=== PATIENT | male | born 1955 | race Caucasian/White ===

== ENCOUNTER 2018-09-21 16:21 | Inpatient (IN) | payer MEDICAID ==
[~2018-09-21] VITALS: Ht 167.6 cm; Wt 54.0 kg
[2018-09-21] MEDS ORDERED: NACL 0.9% 1,000 ML IV ONE ×2 (16:30→16:56)
[2018-09-21 16:32] VITALS: BP_SYST 141
--- NOTE | 2018-09-21 16:42 | NUR ---
Patient to ER bed 8 to gown for evaluation. Side rails up. Report given to Lizandro DHILLON.
--- NOTE | 2018-09-21 16:45 | NUR ---
Pt AAOx4 presents to ED c/o 03/13 diffuse abdominal pain with N/V x 2 days. No other injuries/complaints per pt/noted. Will continue to monitor.
--- NOTE | 2018-09-21 16:50 | NUR ---
ER Dr. Dalton at bedside examining patient.
[2018-09-21] MEDS ORDERED: MORPHINE 4 MG/ML INJ. SYRINGE IVP ONE (17:00)
[2018-09-21] MEDS ORDERED: ONDANSETRON HCL 4 MG/2 ML VIAL IVP ONE (17:00)
[2018-09-21 17:18] LABS: BASOPHILS % (AUTO) 0.2 % (0.0-2.0); HEMATOCRIT 46.3 % (36-54); HEMOGLOBIN 15.4 g/dL (14.0-18.0); LYMPHOCYTES # (AUTO) 0.5 K/uL (1.0-5.5); LYMPHOCYTES % (AUTO) 3.2 % (20.5-51.5); MEAN CORPUSCULAR HEMOGLOBIN 30 pg (27-31); MEAN CORPUSCULAR HGB CONC 33 % (32-36); MEAN CORPUSCULAR VOLUME 92 fL (79.0-98.0); MONOCYTES # (AUTO) 0.5 K/uL (0.0-1.0); MONOCYTES % (AUTO) 3.6 % (1.7-9.3); NEUTROPHILS # (AUTO) 13.9 K/uL (1.8-7.7); PLATELET COUNT (AUTO) 279 K/uL (130-430); RED BLOOD CELL COUNT(AUTO) 5.07 MIL/uL (4.2-6.2); RED CELL DISTRIBUTION WIDTH 14.1 % (9.0-15.0)
[2018-09-21 17:36] LABS: PROTHROMBIN TIME 10.3 SECS (9.5-12.5)
[2018-09-21 17:45] LABS: CALCIUM 9.7 mg/dL (8.4-11.0); CREATININE 0.97 mg/dL (0.55-1.30); POTASSIUM 3.6 mmol/L (3.5-5.1)
[2018-09-21] MEDS ORDERED: cefTRIAXone 1 GM IVPB PREMIX 50 ML IV ONE (17:45)
[2018-09-21 17:51] LABS: ALBUMIN 4.1 g/dL (3.4-4.8); TOTAL BILIRUBIN 0.6 mg/dL (0.0-1.0)
[2018-09-21 18:10] LABS: BILIRUBIN,URINE NEGATIVE (NEGATIVE); BLOOD, URINE NEGATIVE (NEGATIVE); CLARITY/URINE CLEAR (CLEAR); COLOR,URINE YELLOW (YELLOW); GLUCOSE,URINE NEGATIVE (NEGATIVE); KETONES,URINE NEGATIVE (NEGATIVE); LEUKOCYTE ESTERASE ,URINE NEGATIVE (NEGATIVE); NITRITE, URINE NEGATIVE (NEGATIVE); PROTEIN URINE NEGATIVE (NEGATIVE); UROBILINOGEN,URINE 0.2 (0.2-1.0)
--- NOTE | 2018-09-21 18:12 | NUR ---
Medication administered. Pt tolerated well. No adverse reactions noted. Will continue to monitor.
[2018-09-21 18:20] LABS: BARBITURATE, URINE NEGATIVE (NEG <=200); BENZODIAZEPINE, URINE NEGATIVE (NEG <=150); CANNABINOID, URINE POSITIVE (NEG <=50); COCAINE, URINE NEGATIVE (NEG <=150); METHAMPHETAMINES SCREEN,URINE NEGATIVE (NEG <=500); OPIATE, URINE POSITIVE (NEG <=100); PHENCYCLIDINE SCREEN,URINE NEGATIVE (NEG <=25); UR TRICYCLIC ANTIDEPRESSANTS NEGATIVE (NEG <=300); URINE AMPHETAMINE NEGATIVE (NEG <=500); URINE METHADONE NEGATIVE (NEG <=200); URINE OXYCODONE SCREEN NEGATIVE (NEG <=100); URINE PROPOXYPHENE SCREEN NEGATIVE (NEG <=300)
--- NOTE | 2018-09-21 18:26 | NUR ---
Pt reports he is full code
--- NOTE | 2018-09-21 19:07 | NUR ---
Patient will be admitted to care of Dr. Nowak. Admitted to Med Surg unit. Will go to room 111 B. Belongings list completed. Summary report printed. Report will be given at bedside.
--- NOTE | 2018-09-21 19:07 | NUR ---
Transfer to [facility]. IV present no sign or symptom of infiltration.
[2018-09-21 20:00] VITALS: BP_SYST 154
--- NOTE | 2018-09-21 20:04 | NUR ---
ADMIT NOTE Received pt from ER to the floor with a diagnosis of acute cholecystitis. Admission process initiated. patient oriented to pain management, safety and call light-teach back done.
--- NOTE | 2018-09-21 20:05 | NUR ---
ROUNDS PATIENT IN BED, VITALS STABLE, NO PAIN AT THIS TIME. ASSESSMENT DONE AND DOCUMENTED. SEE FLOWSHEET. ORIENTED TO HIS ROOM, PHONE, TV AND CALL LIGHT LIGHT. PLAN OD CARE DISCUSSED AND PATIENT VERBALIZED UNDERSTANDING. NEEDS ATTENDED TO. CALL LIGHT PLACED WITHIN REACH.
[2018-09-21] MEDS ORDERED: OMEP20CA10 PO (20:18)
[2018-09-21] MEDS ORDERED: LISI10TA5 PO (20:18)
[2018-09-21] MEDS ORDERED: CYM30 PO (20:18)
[2018-09-21] MEDS ORDERED: HYDR-4274 PO (20:18)
[2018-09-21] MEDS ORDERED: KCL 20 mEq in D5/0.45NS 1000mL 1,000 ML IV ONE (20:52)
[2018-09-21] MEDS: KCL 20 mEq in D5/0.45NS 1000mL 1,000 ML IV SCH (21:18)
[2018-09-21] MEDS: HYDROmorphone 2 MG/ML VIAL IVP PRN (23:07)
[2018-09-21] MEDS: ONDANSETRON HCL 4 MG/2 ML VIAL IVP PRN (23:12)
--- NOTE | 2018-09-21 23:52 | NUR ---
DR. MARSH PATIENT SEEN BY DR. MARSH WITH NEW ORDERS. WILL CONTINUE TO MONITOR.
[2018-09-22 00:09] VITALS: BP_SYST 129
--- NOTE | 2018-09-22 00:24 | NUR ---
CONSULTATION PAGED/CALLED Reason for Consultation: CHOLECYSTITIS Person Who was Notified: STANISLAV Consulting Physician: DR. HANNON Boat Outboard Engine Mechanic Specialty: SX Ordering Physician: DR. MARSH
--- NOTE | 2018-09-22 00:37 | NUR ---
Consult Dr. Nielsen called returning call for consult. Updated on patient history. No orders given.
[2018-09-22] MEDS ORDERED: metroNIDAZOLE 500 mg/NS 100 ML IV ONE (00:54)
[2018-09-22] MEDS: PANTOPRAZOLE SODIUM 40 MG/VIAL (PROTONIX) IVP SCH ×2 (01:06→09:00)
[2018-09-22] MEDS: ONDANSETRON HCL 4 MG/2 ML VIAL IVP PRN ×5 (03:44→20:35)
[2018-09-22] MEDS: HYDROmorphone 2 MG/ML VIAL IVP PRN ×4 (03:44→20:36)
--- NOTE | 2018-09-22 04:13 | NUR ---
PATIENT RESTING: Patient resting quietly. No acute distress noted. Vital signs within normal range.
[2018-09-22] MEDS: metroNIDAZOLE 500 mg/NS 100 ML IV SCH ×3 (05:06→23:56)
[2018-09-22 06:25] LABS: BASOPHILS % (AUTO) 0.2 % (0.0-2.0); HEMATOCRIT 41.2 % (36-54); HEMOGLOBIN 13.6 g/dL (14.0-18.0); LYMPHOCYTES # (AUTO) 0.3 K/uL (1.0-5.5); LYMPHOCYTES % (AUTO) 2.3 % (20.5-51.5); MEAN CORPUSCULAR HEMOGLOBIN 30 pg (27-31); MEAN CORPUSCULAR HGB CONC 33 % (32-36); MEAN CORPUSCULAR VOLUME 91 fL (79.0-98.0); MONOCYTES # (AUTO) 0.4 K/uL (0.0-1.0); MONOCYTES % (AUTO) 3.9 % (1.7-9.3); NEUTROPHILS # (AUTO) 10.6 K/uL (1.8-7.7); NEUTROPHILS % (AUTO) 93.6 % (40.0-70.0); PLATELET COUNT (AUTO) 221 K/uL (130-430); RED CELL DISTRIBUTION WIDTH 14.4 % (9.0-15.0); WHITE BLOOD COUNT (AUTO) 11.3 K/uL (4.8-10.8)
[2018-09-22 06:38] LABS: CALCIUM 8.6 mg/dL (8.4-11.0); CREATININE 0.86 mg/dL (0.55-1.30); POTASSIUM 3.7 mmol/L (3.5-5.1)
--- NOTE | 2018-09-22 06:52 | NUR ---
CLOSING NOTES PATIENT ASLEEP, NOT IN DISTRESS, VITALS STABLE. NO SIGNS OF PAIN AT THIS TIME. ALL NEEDS ATTENDED TO. SAFETY MEASURES MAINTAINED. CALL LIGHT PLACED WITHIN REACH.
[2018-09-22 08:00] VITALS: BP_SYST 155
--- NOTE | 2018-09-22 08:00 | NUR ---
RN OPENING NOTE PATIENT IS RESTING IN BED, ALERT ORIENTED X4, PATIENT COMPLAINTS OF HEADACHE OF 4/10, PATIENT WILL BE GIVEN HIS PRN NON NARCOTIC PAIN MED. PATIENT WAS ASSESSED, VITAL SIGNS ARE STABLE. WILL CONTINUE TO MONITOR.
[2018-09-22] MEDS: LISINOPRIL 10 MG TABLET (PRINIVIL) PO SCH (08:45)
[2018-09-22] MEDS: ACETAMINOPHEN 325 MG TABLET PO PRN (08:46)
[2018-09-22] MEDS: ENOXAPARIN SODIUM 40 MG/0.4 ML SYRINGE SUBCUT SCH (08:47)
--- NOTE | 2018-09-22 10:00 | NUR ---
RN NOTE PATIENT WAS GIVEN HIS IV MEDIATIONS WELL ZOFRAN SINCE HE FELT NAUSEA, PATIENT IS SCHEDULED FOR HIDA SCAN, WILL FOLLOW UP WITH THE [facility].
--- NOTE | 2018-09-22 11:21 | NUR ---
pain: Patient is still waiting for HIDA scan, but he has severe pain. Call the [place] medical instrument technician and he spoke to a Radiologist and said it is OK to give Dilaudid 2 mg IVP as PRN ordered, then he will medicinal plant picker patient about in 2 hrs.
[2018-09-22] MEDS: DULoxetine HCL 30 MG CAPSULE.DR (CYMBALTA) PO SCH (11:54)
[2018-09-22] MEDS: KCL 20 mEq in D5/0.45NS 1000mL 1,000 ML IV SCH ×2 (11:55→23:40)
[2018-09-22 12:02] VITALS: BP_SYST 137
--- NOTE | 2018-09-22 14:00 | NUR ---
RN NOTE PATIENT LEFT TO HIDA SCAN.
--- NOTE | 2018-09-22 16:06 | NUR ---
RN NOTE PATIENT CAME FORM HIDA SCAN, PATIENT WAS GIVEN HIS PRN DILAUDID, SINCE HE HAS PAIN IN THE RIGHT UPPER QUADRANT OF 10/10, PATIENT VERBALIZED RELIEF OF PAIN AFTER GIVING THE PAIN MEDICATION. WILL CONTINUE TO MONITOR.
[2018-09-22 16:17] VITALS: BP_SYST 131
--- NOTE | 2018-09-22 18:00 | NUR ---
RN CLOSING NOTE PATIENT IS RESTING IN BED, DENIES PAIN OR DISCOMFORT. PATIENT WAS SERVED HIS DINNER, PATIENT WAS HELPED TO THE BATHROOM WHERE HE HAS A BM, PATIENT WAS HELPED BACK TO THE BED AND SAT DOWN TO EAT. WILL CONTINUE TO MONITOR AND WILL ENDORSE TO NEXT SHIFT.
--- NOTE | 2018-09-22 19:35 | NUR ---
ROUNDS PATIENT RESTING COMFORTABLY IN BED, VITALS STABLE, DENIES ANY PAIN AT THIS TIME. ASSESSMENT DONE AND DOCUMENTED. SEE FLOWSHEET. NEEDS ATTENDED TO. SAFETY AND FALL PRECAUTION MEASURES MAINTAINED. CALL LIGHT PLACED WITHIN REACH.
--- NOTE | 2018-09-22 21:13 | NUR ---
MEDICATION DUE MEDICATIONS GIVEN ORDERED, TOLERATED WELL. WILL CONTINUE TO MONITOR.
--- NOTE | 2018-09-23 00:12 | NUR ---
PATIENT RESTING: Patient resting quietly. No acute distress noted. Vital signs within normal range.
[2018-09-23] MEDS: HYDROmorphone 2 MG/ML VIAL IVP PRN ×5 (01:00→22:38)
[2018-09-23] MEDS: ONDANSETRON HCL 4 MG/2 ML VIAL IVP PRN ×3 (01:00→21:18)
[2018-09-23 01:27] VITALS: BP_SYST 150
--- NOTE | 2018-09-23 02:13 | NUR ---
ROUNDS PATIENT ASLEEP, RESPIRATIONS EVEN AND UNLABORED, NO SIGNS OF ANY PAIN AND DISCOMFORT NOTED. WILL CONTINUE TO MONITOR.
--- NOTE | 2018-09-23 04:12 | NUR ---
PATIENT RESTING: Patient resting quietly. No acute distress noted. Vital signs within normal range.
[2018-09-23] MEDS: metroNIDAZOLE 500 mg/NS 100 ML IV SCH ×3 (05:47→22:39)
--- NOTE | 2018-09-23 06:23 | NUR ---
CLOSING NOTES PATIENT AWAKE, VITALS STABLE, NO MORE PAIN AT THIS TIME. ALL NEEDS ATTENDED TO. SAFETY AND FALL PRECAUTION MEASURES MAINTAINED. CALL LIGHT PLACED WITHIN REACH.
[2018-09-23 06:24] LABS: CALCIUM 8.8 mg/dL (8.4-11.0); CREATININE 0.77 mg/dL (0.55-1.30); POTASSIUM 3.6 mmol/L (3.5-5.1)
[2018-09-23 06:26] LABS: BASOPHILS % (AUTO) 0.2 % (0.0-2.0); HEMATOCRIT 42.1 % (36-54); HEMOGLOBIN 14.1 g/dL (14.0-18.0); LYMPHOCYTES # (AUTO) 0.5 K/uL (1.0-5.5); LYMPHOCYTES % (AUTO) 6.7 % (20.5-51.5); MEAN CORPUSCULAR HEMOGLOBIN 30 pg (27-31); MEAN CORPUSCULAR HGB CONC 34 % (32-36); MEAN CORPUSCULAR VOLUME 91 fL (79.0-98.0); MONOCYTES # (AUTO) 0.6 K/uL (0.0-1.0); MONOCYTES % (AUTO) 7.9 % (1.7-9.3); NEUTROPHILS # (AUTO) 6.5 K/uL (1.8-7.7); NEUTROPHILS % (AUTO) 85.2 % (40.0-70.0); PLATELET COUNT (AUTO) 213 K/uL (130-430); RED BLOOD CELL COUNT(AUTO) 4.63 MIL/uL (4.2-6.2); WHITE BLOOD COUNT (AUTO) 7.6 K/uL (4.8-10.8)
[2018-09-23 08:02] VITALS: BP_SYST 124
--- NOTE | 2018-09-23 08:05 | NUR ---
OPENING NOTES patient received resting in bed A&O x4, breathing is even and unlabored on room air, patient denies any pain or nausea at this time, no acute distress noted, assisted patient to use bathroom, patient ambulates well with assist, educated patient on plan of care and call light system, will continue to monitor, safety precautions in place, bed alarm on, call light within reach.
[2018-09-23] MEDS: PANTOPRAZOLE SODIUM 40 MG/VIAL (PROTONIX) IVP SCH (08:41)
[2018-09-23] MEDS: ENOXAPARIN SODIUM 40 MG/0.4 ML SYRINGE SUBCUT SCH (08:41)
[2018-09-23] MEDS: DULoxetine HCL 30 MG CAPSULE.DR (CYMBALTA) PO SCH (08:41)
[2018-09-23] MEDS: LISINOPRIL 10 MG TABLET (PRINIVIL) PO SCH (08:42)
--- NOTE | 2018-09-23 10:15 | NUR ---
NOTES patient is resting in bed watching tv, assisted patient to use bathroom, patient tolerated well, breathing is even and unlabored on room air, IVF infusing as ordered, no acute distress or pain is noted at this time, will continue to monitor, safety precautions in place, call light within reach.
[2018-09-23 12:02] VITALS: BP_SYST 137
--- NOTE | 2018-09-23 12:03 | NUR ---
NOTES patient is resting in bed with eyes closed, pain is controlled at this time, breathing is even and unlabored on room air, no acute distress noted, IVF infusing as ordered, will continue to monitor, safety precautions in place, call light within reach.
[2018-09-23] MEDS: KCL 20 mEq in D5/0.45NS 1000mL 1,000 ML IV SCH ×2 (13:00→23:17)
--- NOTE | 2018-09-23 14:35 | NUR ---
NOTES patient is resting in bed watching tv, pain is controlled at this time, breathing is even and unlabored on room air, no acute distress or vomiting, will continue to monitor, safety precautions in place, call light within reach.
--- NOTE | 2018-09-23 15:38 | NUR ---
CONSULTATION PAGED REASON FOR CONSULTATION:ABDOMINAL PAIN WAS CONSULT CALLED?Y PERSON WHO WAS NOTIFIED:CHRISTINA CONSULTING PHYSICIAN:ANNA PAPPAS ( GAS METER INSTALLER HELPER) FLIGHT ATTENDANT SPECIALTY:GI FLIGHT ATTENDANT PHONE NUMBER:[phone] REQUESTING PHYSICIAN:SKYE WATTS
[2018-09-23 16:02] VITALS: BP_SYST 147
--- NOTE | 2018-09-23 16:22 | NUR ---
NOTES patient resting in bed with eyes closed, no acute distress or pain at this time, breathing is even and unlabored on room air, IVF infusing as ordered, will continue to monitor, safety precautions in place, call light within reach.
[2018-09-23 19:15] VITALS: BP_SYST 126
--- NOTE | 2018-09-23 19:15 | NUR ---
OPENING NOTE RECEIVED ENDORSEMENT REPORT FROM DAY NURSE GOULD AT BEDSIDE. PATIENT RESTING IN BED. PT ALERT ORIENTED X4. CHEST RISE EVEN AND UNLABORED. NO SOB NOTED. NO DISTRESS NOTED. VITAL SIGNS WNL. PATIENT DENIES PAIN AT THIS TIME. IV CLEAN DRY AND INTACT. IVF INFUSING AT ORDERED RATE. SKIN INTACT. ORIENTED PATIENT TO HOSPITAL ROOM. INSTRUCTED PATIENT HOW TO USE CALL LIGHT AND ROOM PHONE TO CALL FOR ASSISTANCE. PT VERBALIZED UNDERSTANDING. SAFETY MEASURES IN PLACE. CALL LIGHT AND ROOM PHONE WITHIN REACH, BED ALARM ON, BED WHEELS LOCKED, BED RAILS UP X2, BED IN LOWEST POSITION. NO NEEDS AT THIS TIME. WILL CONTINUE TO MONITOR AND CONTINUE POC.
--- NOTE | 2018-09-23 20:15 | NUR ---
RN ROUNDS PATIENT RESTING IN BED. CHEST RISE EVEN AND UNLABORED. NO SOB NOTED. NO DISTRESS NOTED. VITAL SIGNS WNL. PATIENT DENIES PAIN AT THIS TIME. IVF INFUSING AT ORDERED RATE. SAFETY MEASURES IN PLACE. NO NEEDS AT THIS TIME. WILL CONTINUE TO MONITOR AND CONTINUE POC.
--- NOTE | 2018-09-23 21:26 | NUR ---
RN ROUNDS PATIENT RESTING IN BED. CHEST RISE EVEN AND UNLABORED. NO SOB NOTED. NO DISTRESS NOTED. PATIENT DENIES PAIN AT THIS TIME. PATIENT REPORTS NAUSEA, PRN ZOFRAN ADMINISTERED IVP, PT TOLERATED WELL. WILL MONITOR MEDICATION EFFECTIVENESS. NO OTHER NEEDS AT THIS TIME. IVF INFUSING AT ORDERED RATE. SAFETY MEASURES IN PLACE. WILL CONTINUE TO MONITOR AND CONTINUE POC.
--- NOTE | 2018-09-23 22:40 | NUR ---
MED PASS PATIENT RESTING IN BED. CHEST RISE EVEN AND UNLABORED. NO SOB NOTED. NO DISTRESS NOTED. VITAL SIGNS WNL. PATIENT REPORTS 10/10 PAIN AT THIS TIME. PRN DILAUDID ADMINISTERED ORDERED. PT TOLERATED WELL. WILL MONITOR MEDICATION EFFECTIVENESS. SCHEDULED MEDICATIONS ADMINISTERED ORDERED. PATIENT DENIES N/V AT THIS TIME. IVF INFUSING AT ORDERED RATE. NO OTHER NEEDS AT THIS TIME. SAFETY MEASURES IN PLACE. WILL CONTINUE TO MONITOR AND CONTINUE POC.
--- NOTE | 2018-09-24 00:20 | NUR ---
RN ROUNDS PATIENT RESTING IN BED. CHEST RISE EVEN AND UNLABORED. NO SOB NOTED. NO DISTRESS NOTED. PATIENT DENIES PAIN AT THIS TIME. IVF INFUSING AT ORDERED RATE. SAFETY MEASURES IN PLACE. NO NEEDS AT THIS TIME. WILL CONTINUE TO MONITOR AND CONTINUE POC.
[2018-09-24 00:45] VITALS: BP_SYST 137
--- NOTE | 2018-09-24 02:15 | NUR ---
RN ROUNDS PATIENT RESTING IN BED WITH EYES CLOSED. CHEST RISE EVEN AND UNLABORED. NO SOB NOTED. NO DISTRESS NOTED. NO S/S OF PAIN NOTED AT THIS TIME. IVF INFUSING AT ORDERED RATE. SAFETY MEASURES IN PLACE. NO NEEDS AT THIS TIME. WILL CONTINUE TO MONITOR AND CONTINUE POC.
[2018-09-24] MEDS: HYDROmorphone 2 MG/ML VIAL IVP PRN ×3 (04:05→14:53)
--- NOTE | 2018-09-24 04:14 | NUR ---
MED PASS PATIENT RESTING IN BED. CHEST RISE EVEN AND UNLABORED. NO SOB NOTED. NO DISTRESS NOTED. PATIENT REPORTS 10/10 PAIN AT THIS TIME. PRN DILAUDID ADMINISTERED ORDERED. PT TOLERATED WELL. WILL MONITOR MEDICATION EFFECTIVENESS. PATIENT DENIES N/V AT THIS TIME. IVF INFUSING AT ORDERED RATE. NO OTHER NEEDS AT THIS TIME. SAFETY MEASURES IN PLACE. WILL CONTINUE TO MONITOR AND CONTINUE POC.
[2018-09-24] MEDS: metroNIDAZOLE 500 mg/NS 100 ML IV SCH ×3 (05:26→21:50)
--- NOTE | 2018-09-24 05:29 | NUR ---
MED PASS PATIENT RESTING IN BED. CHEST RISE EVEN AND UNLABORED. NO SOB NOTED. NO DISTRESS NOTED. PATIENT DENIES PAIN AT THIS TIME. SCHEDULED MEDICATIONS ADMINISTERED ORDERED. IVF INFUSING AT ORDERED RATE. PATIENT DENIES N/V AT THIS TIME. NO OTHER NEEDS AT THIS TIME. SAFETY MEASURES IN PLACE. WILL CONTINUE TO MONITOR AND CONTINUE POC.
--- NOTE | 2018-09-24 06:54 | NUR ---
CLOSING NOTE PATIENT RESTING IN BED. CHEST RISE EVEN AND UNLABORED. NO SOB NOTED. NO DISTRESS NOTED. NO S/S OF PAIN NOTED. IVF INFUSING AT ORDERED RATE. PAIN MANAGED THROUGHOUT SHIFT. ALL NEEDS MET THROUGHOUT SHIFT. SAFETY MEASURES IN PLACE THROUGHOUT SHIFT. WILL ENDORSE PT REPORT TO DAY NURSE.
--- NOTE | 2018-09-24 07:35 | NUR ---
Opening Note received bedside SBAR report from second shift supervisor RN, patient resting in bed, no acute distress noted, patient educated on use of call light and asked to call for assistance, patient verbalized understanding, call light in reach, bed in low and locked position, bed alarm on.
[2018-09-24 08:00] VITALS: BP_SYST 147
[2018-09-24] MEDS: PANTOPRAZOLE SODIUM 40 MG/VIAL (PROTONIX) IVP SCH (08:50)
[2018-09-24] MEDS: ENOXAPARIN SODIUM 40 MG/0.4 ML SYRINGE SUBCUT SCH (08:51)
[2018-09-24] MEDS: ONDANSETRON HCL 4 MG/2 ML VIAL IVP PRN ×2 (08:51→14:52)
[2018-09-24] MEDS: DULoxetine HCL 30 MG CAPSULE.DR (CYMBALTA) PO SCH (08:51)
[2018-09-24] MEDS: LISINOPRIL 10 MG TABLET (PRINIVIL) PO SCH (08:52)
[2018-09-24] MEDS ORDERED: COMMUNICATION ORDER XX ONE (09:00)
--- NOTE | 2018-09-24 09:00 | NUR ---
Emesis/Medication patient had emesis, clear/yellow, 200ml, patient requesting PRN zofran, patient educated on use and side effects of PRN zofran, patient tolerated medication administration well, no acute distress noted.
--- NOTE | 2018-09-24 11:08 | NUR ---
Ambulated to bathroom patient ambulated to bathroom, steady gait noted, patient ambulated back to bed, no acute distress noted.
[2018-09-24 12:06] VITALS: BP_SYST 150
--- NOTE | 2018-09-24 13:02 | NUR ---
RN Rounds patient sleeping in bed, respirations even and unlabored on room air, no acute distress noted.
--- NOTE | 2018-09-24 13:29 | NUR ---
PAGED PAGED ODILIA BELL AT [phone] SPOKE WITH SEGUNDO.
[2018-09-24] MEDS: KCL 20 mEq in D5/0.45NS 1000mL 1,000 ML IV SCH (14:52)
--- NOTE | 2018-09-24 15:02 | NUR ---
emesis/medication patient had emesis, 150ml, patient requesting PRN zofran, patient educated on use and side effects of PRN zofran, patient verbalized understanding, tolerated medication administration well, no acute distress noted.
[2018-09-24 16:50] VITALS: BP_SYST 157
[2018-09-24] MEDS ORDERED: GOLYTELY / COLYTE SOLUTION 4 LITERS PO ONE (17:00)
[2018-09-24] MEDS ORDERED: BISACODYL 5 MG TABLET.DR (DULCOLAX) PO ONE (17:00)
--- NOTE | 2018-09-24 17:06 | NUR ---
Dinner patient requesting dinner tray before starting bowel prep, patient provided with clear liquid dinner tray.
[2018-09-24 19:16] VITALS: BP_SYST 154
--- NOTE | 2018-09-24 19:22 | NUR ---
Closing Note bedside SBAR report given to receiving RN, patient resting in bed, no acute distress noted, patient educated on use of call light and asked to call for assistance, patient verbalized understanding, call light in reach, bed in low and locked position, bed alarm on, care endorsed to night warehouse selector RN.
--- NOTE | 2018-09-24 19:24 | NUR ---
initial notes: pt is on bed side commode, alert, oriented x 4. no pain, vitla sign are stable. not distress. ivf infusing well. pt is drinking his golytely. half of the bottle will be given at 3am according dr. uribe. needs attended. call light in reach. will follow-up.
--- NOTE | 2018-09-24 22:00 | NUR ---
notes: pt is resting quietly, no pain. stable. needs attended, call light in reach. low bed position. bed alarm on. willfollow-up.
--- NOTE | 2018-09-24 22:00 | NUR ---
notes: pt is resting quietly, no pain. not agitated. stable. needs attended, call light in reach. low bed position. bed alarm on. willfollow-up. Addendum: 09/25/18 at 0154 by Ranjit Pop RN wrong entry
--- NOTE | 2018-09-25 | NUR ---
notes: pt is resting, wakes up for his midnight medication. blood sugar-238, covered per sliding scale. needs attended. call light in reach. low bed position. will follow-up. Addendum: 09/25/18 at 0038 by Ranjit Pop RN disregard, wrong entry
[2018-09-25 00:08] VITALS: BP_SYST 126
--- NOTE | 2018-09-25 00:20 | NUR ---
notes: resting, no pain. no distress. stable. iiv antibiotic given. needs attended. call light in reach. will follow-up.
--- NOTE | 2018-09-25 01:57 | NUR ---
notes: sleeping on his side, comfortable, no sob. no pain. stable. needs attended. call light in reach. low bed position. will follow-up.
[2018-09-25] MEDS: HYDROmorphone 2 MG/ML VIAL IVP PRN ×2 (02:41→10:24)
[2018-09-25] MEDS: ONDANSETRON HCL 4 MG/2 ML VIAL IVP PRN (02:48)
--- NOTE | 2018-09-25 03:27 | NUR ---
notes: pt wakes up. no pain. stable. pt continue to take golytely again. stool is clear green watery with precipitate. clean bsc. needs attended. call light in reach . will follow-up.
--- NOTE | 2018-09-25 05:14 | NUR ---
NOTES: pt is bm is now clear water, no precipitate. pt tolerate well. pt is now resting in bed. call light in reach. side rails up. lowest bed position. will monitor.
[2018-09-25] MEDS: metroNIDAZOLE 500 mg/NS 100 ML IV SCH ×2 (05:27→13:24)
[2018-09-25] MEDS: KCL 20 mEq in D5/0.45NS 1000mL 1,000 ML IV SCH (05:28)
--- NOTE | 2018-09-25 06:20 | NUR ---
notes: pt is sleeping, wakes up when seen and interview by GI nurse, stable. no pain. needs attended. call light in reach. side rails uup. low bed position. will monitor.
[2018-09-25] MEDS ORDERED: SIMETHICONE 40 MG/0.6 ML ML ONE (07:13)
[2018-09-25] MEDS: fentaNYL CITRATE/PF 100 MCG/2 ML AMP ONE ×5 (07:14→08:46)
[2018-09-25] MEDS ORDERED: BENZOCAINE 20% 0.5mL UD SPRAY MM ONE (07:14)
[2018-09-25] MEDS: MIDAZOLAM HCL 5 MG/5 ML VIAL ONE ×5 (07:14→08:29)
--- NOTE | 2018-09-25 07:20 | NUR ---
closing: pt is resting, on his side . no pain. not distress. clear for egd and colonoscopy.stable. ivf infusing well. needs attended the whole shift. bed side report given to am rn.
--- NOTE | 2018-09-25 07:23 | NUR ---
Opening Note received bedside SBAR report from security shift supervisor RN, patient resting in bed, respirations even and unlabored on room air, no acute distress noted, patient NPO awaiting procedure this AM, patient educated on use of call light and asked to call for assistance, patient verbalized understanding, call light in reach, bed in low and locked position, bed alarm on.
--- NOTE | 2018-09-25 07:40 | NUR ---
to GI lab patient taken to GI lab via wheelchair, no acute distress noted.
--- NOTE | 2018-09-25 09:50 | NUR ---
back from GI patient brought back to room from GI lab via wheelchair, patient resting in bed, no acute distress noted, patient denies any pain, patient kept NPO at this time awaiting MRI, patient verbalized understanding of NPO status.
[2018-09-25] MEDS ORDERED: DIPHENHYDRAMINE INJ 50 MG/ML VIAL ONE (10:07)
[2018-09-25] MEDS: PANTOPRAZOLE SODIUM 40 MG/VIAL (PROTONIX) IVP SCH (10:24)
[2018-09-25] MEDS: ENOXAPARIN SODIUM 40 MG/0.4 ML SYRINGE SUBCUT SCH (10:25)
[2018-09-25 10:31] VITALS: BP_SYST 148
--- NOTE | 2018-09-25 11:05 | NUR ---
to MRI patient taken to MRI via wheelchair, no acute distress noted.
--- NOTE | 2018-09-25 12:10 | NUR ---
back from MRI patient brought back to room from MRI via gurney, patient resting in bed eating lunch, no acute distress noted.
[2018-09-25] MEDS: DULoxetine HCL 30 MG CAPSULE.DR (CYMBALTA) PO SCH (12:29)
[2018-09-25] MEDS: LISINOPRIL 10 MG TABLET (PRINIVIL) PO SCH (12:29)
--- NOTE | 2018-09-25 13:27 | NUR ---
Physician Rounds Dr. Nowak at bedside talking to patient.
[2018-09-25] MEDS ORDERED: PRO40 PO (15:27)
[2018-09-25 15:35] VITALS: BP_SYST 108
--- NOTE | 2018-09-25 15:54 | NUR ---
RN Rounds patient resting in bed, no acute distress noted, patient aware of orders to discharge home, patient contacted sister Praveena, per patient his sister will be here in one hour for pick-up.
[2018-09-25 15:57] VITALS: BP_SYST 108
[2018-09-25] MEDS: ACETAMINOPHEN 325 MG TABLET PO PRN (16:00)
--- NOTE | 2018-09-25 17:04 | NUR ---
Discharge patient provided with discharge packet and instructions, patient instructed to follow up with primary care provider in one week, patient verbalized understanding, written prescription provided, IV catheter removed, catheter intact, no bleeding, hospital ID band removed, all belongings sent with patient, patient accompanied by sister Praveena for discharge, patient taken to parking lot via wheelchair.
== END 2018-09-25 17:05 | disposition home or self-care (01) | DRG 241 ==
LOC: SED 16:21 → SMU 19:07
PROVIDERS: ADMIT Family Medicine; ATTEND Family Medicine
PROC: 0DB68ZX Excision of Stomach, Via Natural or Artificial Opening Endoscopic, Diagnostic (ICD-10-PCS; principal; 2018-09-25 08:00)
PROC: 0DBF8ZX Excision of Right Large Intestine, Via Natural or Artificial Opening Endoscopic, Diagnostic (ICD-10-PCS; 2018-09-25 08:00)
DX: K29.00 Acute gastritis without bleeding (principal); E87.1 Hypo-osmolality and hyponatremia; F12.90 Cannabis use, unspecified, uncomplicated; F17.210 Nicotine dependence, cigarettes, uncomplicated; K56.7 Ileus, unspecified; G89.29 Other chronic pain; K57.30 Diverticulosis of large intestine without perforation or abscess without bleeding; I10 Essential (primary) hypertension; Z86.010 Personal history of colon polyps; Z88.8 Allergy status to other drugs, medicaments and biological substances
CPT/HCPCS: 36415; 43239; 45380; 71045; 74181; 76700-TC; 78226; 80048; 80053; 80307; 81003; 82150-TC; 82550-TC; 83605; 83690-TC; 84484; 85025; 85610-TC; 85730-TC; 87040-TC; 88305; 88312; 88313; 93005; 96361; 96365; 96375; 99285; A9537; C9113; J0696; J1170; J1200; J1650; J1956; J2250; J2270; J2405; J3010; J3490; J7030

== ENCOUNTER 2018-11-09 17:04 | Emergency (ER) | payer MEDICAID ==
[~2018-11-09] VITALS: Ht 167.6 cm; Wt 54.4 kg
[~2018-11-09 17:04] MED LIST: CYM30 PO; HYDR-4274 PO; LISI10TA5 PO; OMEP20CA10 PO; PRO40 PO
[2018-11-09 17:08] VITALS: BP_SYST 151
[2018-11-09 17:39] LABS: BASOPHILS # (AUTO) 0.1 K/uL (0.0-0.2); BASOPHILS % (AUTO) 0.9 % (0.0-2.0); EOSINOPHILS % (AUTO) 0.5 % (0.0-4.0); HEMATOCRIT 40.5 % (36-54); HEMOGLOBIN 13.6 g/dL (14.0-18.0); LYMPHOCYTES # (AUTO) 0.8 K/uL (1.0-5.5); LYMPHOCYTES % (AUTO) 10.4 % (20.5-51.5); MEAN CORPUSCULAR HEMOGLOBIN 30 pg (27-31); MEAN CORPUSCULAR HGB CONC 34 % (32-36); MEAN CORPUSCULAR VOLUME 90 fL (79.0-98.0); MONOCYTES # (AUTO) 0.4 K/uL (0.0-1.0); MONOCYTES % (AUTO) 6.1 % (1.7-9.3); NEUTROPHILS % (AUTO) 82.1 % (40.0-70.0); PLATELET COUNT (AUTO) 306 K/uL (130-430); RED BLOOD CELL COUNT(AUTO) 4.49 MIL/uL (4.2-6.2); RED CELL DISTRIBUTION WIDTH 16.1 % (9.0-15.0); WHITE BLOOD COUNT (AUTO) 7.3 K/uL (4.8-10.8)
[2018-11-09 17:48] LABS: CALCIUM 9.6 mg/dL (8.4-11.0); CREATININE 0.81 mg/dL (0.55-1.30); POTASSIUM 3.6 mmol/L (3.5-5.1)
[2018-11-09 17:53] LABS: ALBUMIN 3.9 g/dL (3.4-4.8); TOTAL BILIRUBIN 0.5 mg/dL (0.0-1.0)
[2018-11-09] MEDS ORDERED: ONDANSETRON 4 MG ODT TAB PO ONE (18:00)
[2018-11-09 18:13] LABS: BILIRUBIN,URINE NEGATIVE (NEGATIVE); BLOOD, URINE NEGATIVE (NEGATIVE); CLARITY/URINE CLEAR (CLEAR); COLOR,URINE YELLOW (YELLOW); GLUCOSE,URINE NEGATIVE (NEGATIVE); KETONES,URINE NEGATIVE (NEGATIVE); LEUKOCYTE ESTERASE ,URINE NEGATIVE (NEGATIVE); NITRITE, URINE NEGATIVE (NEGATIVE); PH,URINE 6.5 (5.0-8.0); PROTEIN URINE NEGATIVE (NEGATIVE); UROBILINOGEN,URINE 0.2 (0.2-1.0)
[2018-11-09] MEDS ORDERED: DIPHENHYDRAMINE INJ 50 MG/ML VIAL IVP ONE (18:15)
[2018-11-09] MEDS ORDERED: METOCLOPRAMIDE HCL 10 MG/2 ML VIAL IVP ONE (18:15)
[2018-11-09 18:19] LABS: PROTHROMBIN TIME 10.2 SECS (9.5-12.5)
[2018-11-09] MEDS ORDERED: MORPHINE SULFATE 10 MG/ML VIAL IM ONE (19:30)
[2018-11-09 19:40] VITALS: BP_SYST 130
== END 2018-11-09 19:40 | disposition home or self-care (01) ==
LOC: SED 17:04
DX: K57.92 Diverticulitis of intestine, part unspecified, without perforation or abscess without bleeding (principal); I10 Essential (primary) hypertension; Z79.899 Other long term (current) drug therapy; Z88.6 Allergy status to analgesic agent
CPT/HCPCS: 36415; 74176; 80053; 81003; 82150; 83605; 83690; 85025; 85610; 85730; 96372; 99284; J2270; Q0162

== ENCOUNTER 2018-11-11 16:23 | Inpatient (IN) | payer MEDICAID ==
[~2018-11-11] VITALS: Ht 167.6 cm; Wt 50.8 kg
[2018-11-11 16:33] VITALS: BP_SYST 133
--- NOTE | 2018-11-11 16:39 | NUR ---
Patient to ER bed 1 to gown for evaluation. Side rails up.
--- NOTE | 2018-11-11 16:41 | NUR ---
Patient is awake, alert, and oriented x1. Patient is complaining of abdominal pain, reports use of norco daily for a year, states it hurts when he has a BM.
--- NOTE | 2018-11-11 16:42 | NUR ---
ER Dr. Lomax at bedside examining patient.
[2018-11-11] MEDS ORDERED: NACL 0.9% 1,000 ML IV ONE (16:43)
[2018-11-11] MEDS ORDERED: MAG-AL HYDROX/SIMETH 30 ML UDC PO ONE (16:45)
[2018-11-11] MEDS ORDERED: ONDANSETRON HCL 4 MG/2 ML VIAL IVP ONE (16:45)
[2018-11-11] MEDS ORDERED: PANTOPRAZOLE SODIUM 40 MG/VIAL (PROTONIX) IVP ONE (16:45)
[2018-11-11] MEDS ORDERED: LIDOCAINE VISCOUS 2%, 15 ML UDC MM ONE (16:45)
[2018-11-11] MEDS ORDERED: DICYCLOMINE HCL 10 MG/5 ML SOLUTION PO ONE (16:45)
[2018-11-11 17:21] LABS: BASOPHILS # (AUTO) 0.1 K/uL (0.0-0.2); EOSINOPHILS # (AUTO) 0.1 K/uL (0.0-0.4); EOSINOPHILS % (AUTO) 0.8 % (0.0-4.0); HEMATOCRIT 40.6 % (36-54); HEMOGLOBIN 13.4 g/dL (14.0-18.0); LYMPHOCYTES # (AUTO) 0.7 K/uL (1.0-5.5); LYMPHOCYTES % (AUTO) 9.5 % (20.5-51.5); MEAN CORPUSCULAR HEMOGLOBIN 30 pg (27-31); MEAN CORPUSCULAR HGB CONC 33 % (32-36); MEAN CORPUSCULAR VOLUME 90 fL (79.0-98.0); MONOCYTES # (AUTO) 0.6 K/uL (0.0-1.0); MONOCYTES % (AUTO) 7.6 % (1.7-9.3); NEUTROPHILS # (AUTO) 6.3 K/uL (1.8-7.7); NEUTROPHILS % (AUTO) 81.1 % (40.0-70.0); PLATELET COUNT (AUTO) 263 K/uL (130-430); WHITE BLOOD COUNT (AUTO) 7.8 K/uL (4.8-10.8)
[2018-11-11 17:29] LABS: CALCIUM 9.3 mg/dL (8.4-11.0); CREATININE 0.63 mg/dL (0.55-1.30); POTASSIUM 3.4 mmol/L (3.5-5.1)
[2018-11-11 17:35] LABS: ALBUMIN 3.9 g/dL (3.4-4.8); TOTAL BILIRUBIN 0.7 mg/dL (0.0-1.0)
[2018-11-11] MEDS ORDERED: MORPHINE 2 MG/ML INJ. SYRINGE IVP ONE (17:45)
--- NOTE | 2018-11-11 18:19 | NUR ---
Patient will be admitted to care of Dr. Robison. Admitted to medsurg unit. JACQUIE Ayala to call with room assignment. Belongings list completed. Summary report printed. Report will be given at bedside.
--- NOTE | 2018-11-11 18:23 | NUR ---
Unable to complete medication reconcilliation due to knowledge defecit of patient and patient family.
--- NOTE | 2018-11-11 18:30 | NUR ---
Patient transferred to room 101B via gurney. Bedside report given to JACQUIE Mueller for continuation of care.
--- NOTE | 2018-11-11 18:37 | NUR ---
ADMISSION NOTE Received patient from ER via maricruz, received report from Bony DHILLON. Patient admitted with diagnosis of Abdominal pain and hyponatremia. Patient oriented to hospital routine, call light, toileting and safety-patient verbalized understanding.
[2018-11-11 18:42] VITALS: BP_SYST 157
[2018-11-11] MEDS ORDERED: ACETAMINOPHEN 325 MG TABLET PO PRN (19:30)
[2018-11-11 20:00] VITALS: BP_SYST 145
--- NOTE | 2018-11-11 20:00 | NUR ---
INITIAL NOTES/PHYSICAL ADMISSION ASSESSMENT: PATIENT IN BED RESTING FEELING TOLERABLE ABDOMINAL PAIN.IVF FROM ER INFUSING TO LEFT FOREARM. VITAL SIGNS TAKEN .VOIDING GOOD AMT. CLEAR YELLOW URINE.WILL MEDICATE SOON ONCE CHECKS ORDERS. CALL LIGHT WITHIN REACH. BED IN LOW POSITION. WILL MONITOR CLOSELY.
[2018-11-11] MEDS: MORPHINE 4 MG/ML INJ. SYRINGE IVP PRN (22:02)
--- NOTE | 2018-11-11 22:05 | NUR ---
PAIN/NAUSEA: MEDICATED WITH MORPHINE 4MG IV FOR PAIN AND ZOFRAN 4MG IV FOR NAUSEA.
[2018-11-11] MEDS: D5NS 1,000 ML IV SCH (22:10)
[2018-11-11] MEDS: ONDANSETRON HCL 4 MG/2 ML VIAL IVP PRN (22:14)
--- NOTE | 2018-11-11 23:15 | NUR ---
PATIENT SLEEPING. VOIDED GOOD AMT.LIGHT JACKIE URINE.
--- NOTE | 2018-11-12 02:22 | NUR ---
CONSULTATION PAGED/CALLED Reason for Consultation: CONSTIPATION Person Who was Notified: NGHIA Consulting Physician: DEV Wash And Greaser Specialty: Ordering Physician: ABBY
--- NOTE | 2018-11-12 02:24 | NUR ---
CONSULTATION PAGED/CALLED Reason for Consultation: CONSTIPATION Person Who was Notified: NGHIA Consulting Physician: FELICIA Mill Roll Operator Specialty: Ordering Physician: ABBY
[2018-11-12 03:00] VITALS: BP_SYST 128
[2018-11-12] MEDS: MORPHINE 4 MG/ML INJ. SYRINGE IVP PRN ×4 (03:06→17:20)
--- NOTE | 2018-11-12 03:10 | NUR ---
PAIN/NAUSEA: AWAKE AT THIS ROUND. MOANING DUE TO ABDOMINAL PAIN. MORPHINE 4MG IV AND ZOFRAN 4MG IV.
[2018-11-12] MEDS: ONDANSETRON HCL 4 MG/2 ML VIAL IVP PRN (03:11)
--- NOTE | 2018-11-12 06:50 | NUR ---
CLOSING: STILL COMPLAIN OF UPPER AND LOWER ABDOMINAL PAIN ,FAIRLY CONTROLLED BY MORPHINE IV. IVF INFUSING WELL. VOIDED FREELY. NO ACUTE DISTRESS.NPO. .SAFETY MEASURES OBSERVED WHOLE SHIFT.
[2018-11-12 07:23] LABS: BASOPHILS # (AUTO) 0.1 K/uL (0.0-0.2); EOSINOPHILS # (AUTO) 0.2 K/uL (0.0-0.4); EOSINOPHILS % (AUTO) 2.9 % (0.0-4.0); HEMATOCRIT 39.7 % (36-54); HEMOGLOBIN 13.2 g/dL (14.0-18.0); LYMPHOCYTES # (AUTO) 1.5 K/uL (1.0-5.5); MEAN CORPUSCULAR HEMOGLOBIN 30 pg (27-31); MEAN CORPUSCULAR HGB CONC 33 % (32-36); MEAN CORPUSCULAR VOLUME 91 fL (79.0-98.0); MONOCYTES # (AUTO) 0.6 K/uL (0.0-1.0); MONOCYTES % (AUTO) 9.7 % (1.7-9.3); NEUTROPHILS # (AUTO) 4.3 K/uL (1.8-7.7); NEUTROPHILS % (AUTO) 64.4 % (40.0-70.0); PLATELET COUNT (AUTO) 247 K/uL (130-430); RED BLOOD CELL COUNT(AUTO) 4.37 MIL/uL (4.2-6.2); RED CELL DISTRIBUTION WIDTH 15.6 % (9.0-15.0); WHITE BLOOD COUNT (AUTO) 6.6 K/uL (4.8-10.8)
[2018-11-12 07:26] LABS: ALBUMIN 3.3 g/dL (3.4-4.8); CALCIUM 8.9 mg/dL (8.4-11.0); CREATININE 0.7 mg/dL (0.55-1.30); TOTAL BILIRUBIN 0.7 mg/dL (0.0-1.0)
--- NOTE | 2018-11-12 07:30 | NUR ---
opening note patient is resting in bed, A&OX4, assessment completed, educated photonics engineering technician light system and plan of care, patient verbalized understanding, DR Leslie came for rounds and gave new orders, IV site clean and IV fluids running with no signs of infiltration, no other needs at this time, fall/safety precautions in place, allergy band on.
[2018-11-12] MEDS: D5NS 1,000 ML IV SCH ×2 (08:36→11:26)
[2018-11-12] MEDS: METOCLOPRAMIDE HCL 10 MG/2 ML VIAL IVP PRN ×2 (08:59→17:24)
[2018-11-12 09:26] VITALS: BP_SYST 145
--- NOTE | 2018-11-12 10:29 | NUR ---
Nutrition Update Kam Scale 16 noted. Pt admitted for abd pain and hyponatremia. Diet: full liquid BMI: 18.1 kg/m2 RD to follow per nutrition care standards.
--- NOTE | 2018-11-12 10:30 | NUR ---
rounds patient resting in bed, informed him of the new medications he will be getting and tap water enema, patient verbalized understanding, no other needs at this time, fall/safety precautions in place.
[2018-11-12] MEDS ORDERED: DULoxetine HCL 30 MG CAPSULE.DR (CYMBALTA) PO ONE (11:00)
[2018-11-12] MEDS ORDERED: LISINOPRIL 10 MG TABLET (PRINIVIL) PO ONE (11:00)
[2018-11-12] MEDS ORDERED: PANTOPRAZOLE SODIUM 40 MG TAB PO ONE (11:00)
[2018-11-12] MEDS ORDERED: OMEPRAZOLE 20 MG CAPSULE.DR (PriLOSEC) PO SCH (11:00)
[2018-11-12 11:22] VITALS: BP_SYST 110
--- NOTE | 2018-11-12 13:00 | NUR ---
pain medication patient complaining of neck and abdominal pain, educated on medication use and side effects, patient verbalized understanding, no other needs at this time, fall/safety precautions in place.
--- NOTE | 2018-11-12 15:20 | NUR ---
rounds patient is resting in bed, patient states pain is tolerable at this time, no other needs at this time, fall/safety precautions in place, IV fluids running with no signs of infiltration.
[2018-11-12 15:26] VITALS: BP_SYST 131
--- NOTE | 2018-11-12 18:56 | NUR ---
closing note patient is resting in bed, no signs of distress, IV site clean and IV fluids running with no signs of infiltration, no other needs at this time, fall/safety precautions in place, allergy band on, will endorse report to noc shift nurse to continue with care, assist patient to the bathroom when he needs to go, follow up with PRN medications for pain and nausea.
--- NOTE | 2018-11-12 19:10 | NUR ---
INITIAL NOTES: BEDSIDE REPORT DONE THIS TIME. PATIENT IN BED AWAKE ORIENTED X3,WATCHING TV SHOWS. VERBALIZED FEELS COMFORTABLE THIS TIME. IVF INFUSING AT 75ML/HR., IV SITE CLEAR. CALL LIGHT WITHIN REACH. BED IN LOW POSITION. WILL MONITOR CLOSELY.
[2018-11-12 20:00] VITALS: BP_SYST 110
[2018-11-12] MEDS: PANTOPRAZOLE SODIUM 40 MG TAB PO SCH (20:37)
[2018-11-12] MEDS: MORPHINE 2 MG/ML INJ. SYRINGE IVP PRN (22:00)
--- NOTE | 2018-11-12 22:00 | NUR ---
pain: CALLED FOR PAIN MED. MORPHINE 2MG IV GIVEN FOR PAIN LEVEL OF 6/10. ALERT ORIENTED X3. SISTER HERE FOR VISITS.
--- NOTE | 2018-11-12 22:30 | NUR ---
ASSISTED TO BATHROOM TO HAVE BOWEL MOVEMENTS USING IV POLE FOR SUPPORT.
[2018-11-13 00:05] VITALS: BP_SYST 130
--- NOTE | 2018-11-13 00:35 | NUR ---
ROUNDS: SLEEPING. BREATHING PATTERN REGULAR. IVF INFUSING.
[2018-11-13] MEDS: D5NS 1,000 ML IV SCH (02:07)
--- NOTE | 2018-11-13 03:00 | NUR ---
ROUNDS: AWAKEN. ASSISTED TO BATHROOM TO HAVE ANOTHER BOWEL MOVEMENT . TOLERATED WELL, DENIES PAIN THIS TIME.
[2018-11-13] MEDS: MORPHINE 2 MG/ML INJ. SYRINGE IVP PRN (04:28)
--- NOTE | 2018-11-13 04:30 | NUR ---
PAIN/NAUSEA: CALLED FOR ABDOMINAL PAIN MED. FEELS NAUSEA WELL.MORPHINE 2MG AND ZOFRAN 4MG IV GIVEN.
[2018-11-13] MEDS: ONDANSETRON HCL 4 MG/2 ML VIAL IVP PRN ×2 (04:32→12:10)
--- NOTE | 2018-11-13 06:50 | NUR ---
CLOSING: NO ACUTE DISTRESS. NO VOMITING ,HAD NAUSEAX1. HAD 2X LOOSE BM. IVF INFUSING WELL. USES WALKER TO BATHROOM. ALL NEEDS MET. SAFETY MEASURES IMPLEMENTED. ENDORSE CARE TO AM RN.
--- NOTE | 2018-11-13 07:57 | NUR ---
Opening Note/Physician Rounds received bedside report from face burler RN, patient resting in bed, no acute distress noted, educated patient on use of call light and asked to call for assistance, patient verbalized understanding, call light in reach, bed in low and locked position, bed alarm on, Dr. Leslie at bedside examining patient, new diet orders received, verified with read back.
[2018-11-13 08:00] VITALS: BP_SYST 134
[2018-11-13] MEDS ORDERED: LISINOPRIL 10 MG TABLET (PRINIVIL) PO SCH (09:00)
[2018-11-13] MEDS ORDERED: DULoxetine HCL 30 MG CAPSULE.DR (CYMBALTA) PO SCH (09:00)
[2018-11-13] MEDS: METOCLOPRAMIDE HCL 10 MG/2 ML VIAL IVP PRN (09:45)
[2018-11-13] MEDS: PANTOPRAZOLE SODIUM 40 MG TAB PO SCH (09:46)
--- NOTE | 2018-11-13 09:55 | NUR ---
RN Rounds patient resting in bed, per patient his sister will pick him up for discharge home after lunch, no acute distress noted, no additional needs at this time.
--- NOTE | 2018-11-13 11:50 | NUR ---
Dietitian Recommendations * Recommend mechanical soft diet, Ensure Enlive TID (ONS provides an additional 1050 kcal/day and 60 gm protein/day) LP, RD Please refer to Nutrition Assessment for details.
--- NOTE | 2018-11-13 12:32 | NUR ---
RN Rounds patient sitting up in bed eating lunch, patient states that his sister will pick him up for discharge home after lunch, no acute distress noted.
[2018-11-13] MEDS ORDERED: BENI20 PO (12:34)
[2018-11-13 12:38] VITALS: BP_SYST 139
[2018-11-13 12:40] VITALS: BP_SYST 139
--- NOTE | 2018-11-13 14:00 | NUR ---
Discharge patient and patients sister Praveena provided with discharge packet and instructions, patient instructed to follow up with GI doctor in one week, patient verbalized understanding, written prescription provided, IV catheter removed, catheter intact, no bleeding, all belongings sent with patient, patient accompanied by sister Praveena for discharge home, patient taken to parking lot via wheelchair.
== END 2018-11-13 14:00 | disposition home or self-care (01) | DRG 247 ==
LOC: SED 16:23 → SMU 18:07
PROVIDERS: ADMIT Internal Medicine Hospice and Palliative Medicine; ATTEND Internal Medicine Hospice and Palliative Medicine
DX: K56.41 Fecal impaction (principal); E87.1 Hypo-osmolality and hyponatremia; R10.9 Unspecified abdominal pain; I10 Essential (primary) hypertension; M54.2 Cervicalgia; F11.20 Opioid dependence, uncomplicated; F12.90 Cannabis use, unspecified, uncomplicated; F17.210 Nicotine dependence, cigarettes, uncomplicated; G89.4 Chronic pain syndrome; H54.7 Unspecified visual loss; K57.90 Diverticulosis of intestine, part unspecified, without perforation or abscess without bleeding; T40.605A Adverse effect of unspecified narcotics, initial encounter; Z88.6 Allergy status to analgesic agent; Z88.8 Allergy status to other drugs, medicaments and biological substances; Z79.899 Other long term (current) drug therapy; Y92.89 Other specified places as the place of occurrence of the external cause
CPT/HCPCS: 36415; 74021; 80053; 83690-TC; 85025; 96361; 96374; 96375; 99285; C9113; J2001; J2270; J2405; J2765; J7042

== ENCOUNTER 2021-04-18 15:54 | Emergency (ER) | payer MEDICAID ==
[~2021-04-18] VITALS: Ht 167.6 cm; Wt 53.5 kg
[~2021-04-18 15:54] MED LIST changes: +BENI20 PO; -HYDR-4274 PO; +LISI10TA29 PO; -LISI10TA5 PO; -OMEP20CA10 PO; +OMEP20CA15 PO
[2021-04-18 16:02] VITALS: BP_SYST 177
[2021-04-18 17:35] LABS: BILIRUBIN,URINE NEGATIVE (NEGATIVE); BLOOD, URINE NEGATIVE (NEGATIVE); CLARITY/URINE CLEAR (CLEAR); COLOR,URINE YELLOW (YELLOW); GLUCOSE,URINE NEGATIVE (NEGATIVE); KETONES,URINE NEGATIVE (NEGATIVE); LEUKOCYTE ESTERASE ,URINE NEGATIVE (NEGATIVE); NITRITE, URINE NEGATIVE (NEGATIVE); PH,URINE 6.5 (5.0-8.0); PROTEIN URINE NEGATIVE (NEGATIVE); UROBILINOGEN,URINE 0.2 (0.2-1.0)
[2021-04-18 18:12] LABS: BASOPHILS # (AUTO) 0.1 K/uL (0.0-0.2); EOSINOPHILS # (AUTO) 0.1 K/uL (0.0-0.4); EOSINOPHILS % (AUTO) 1.2 % (0.0-4.0); HEMATOCRIT 42.9 % (36-54); HEMOGLOBIN 14.8 g/dL (14.0-18.0); LYMPHOCYTES # (AUTO) 1.2 K/uL (1.0-5.5); LYMPHOCYTES % (AUTO) 18.9 % (20.5-51.5); MEAN CORPUSCULAR HEMOGLOBIN 31 pg (27-31); MEAN CORPUSCULAR HGB CONC 35 % (32-36); MEAN CORPUSCULAR VOLUME 90 fL (79.0-98.0); MONOCYTES # (AUTO) 0.7 K/uL (0.0-1.0); MONOCYTES % (AUTO) 10.9 % (1.7-9.3); NEUTROPHILS # (AUTO) 4.2 K/uL (1.8-7.7); PLATELET COUNT (AUTO) 233 K/uL (130-430); RED BLOOD CELL COUNT(AUTO) 4.79 MIL/uL (4.2-6.2); RED CELL DISTRIBUTION WIDTH 14.7 % (9.0-15.0); WHITE BLOOD COUNT (AUTO) 6.1 K/uL (4.8-10.8)
[2021-04-18 18:19] LABS: ANION GAP 8 (5-15); CALCIUM 9.9 mg/dL (8.4-11.0); CHLORIDE 94 mmol/L (98-107); CREATININE 0.64 mg/dL (0.55-1.30); GLUCOSE 95 mg/dL (70-99); POTASSIUM 3.9 mmol/L (3.5-5.1); SODIUM SERUM 129 mmol/L (136-145); UREA NITROGEN, BLOOD 6 mg/dL (8-21)
[2021-04-18 18:28] LABS: ALANINE AMINOTRANSFERASE 64 U/L (12-78); ALBUMIN 4.7 g/dL (3.4-4.8); ASPARTATE AMINOTRANSFERASE 31 U/L (10-37); LIPASE 66 U/L (73-393); TOTAL BILIRUBIN 0.5 mg/dL (0.0-1.0)
[2021-04-18 18:36] LABS: GFR AFRICAN AMERICAN 162 mL/min (>90)
[2021-04-19] MEDS ORDERED: LIDOCAINE VISCOUS 2%, 15 ML UDC ONE (01:37)
[2021-04-19] MEDS ORDERED: MAG-AL HYDROX/SIMETH 30 ML UDC ONE (01:38)
[2021-04-19] MEDS ORDERED: DICYCLOMINE HCL 10 MG/5 ML SOLUTION ONE (01:38)
[2021-04-19] MEDS ORDERED: ONDANSETRON 4 MG ODT TAB ONE (01:38)
[2021-04-19] MEDS: NACL 0.9% 1,000 ML IV ONE (02:02)
[2021-04-19] MEDS: LIDOCAINE VISCOUS 2%, 15 ML UDC MM ONE (02:02)
[2021-04-19] MEDS: MAG-AL HYDROX/SIMETH 30 ML UDC PO ONE (02:02)
[2021-04-19] MEDS: DICYCLOMINE HCL 10 MG/5 ML SOLUTION PO ONE (02:02)
[2021-04-19] MEDS: ONDANSETRON 4 MG ODT TAB PO ONE (02:03)
[2021-04-19] MEDS: FAMOTIDINE PF 20 MG/2 ML VIAL IVP ONE (03:49)
[2021-04-19] MEDS: HYDROcodone/ACETAMIN 5-325 MG TAB (NORCO/ VICODIN) PO ONE (04:32)
[2021-04-19 05:46] VITALS: BP_SYST 139
== END 2021-04-19 05:45 | disposition home or self-care (01) ==
LOC: SED 15:54
DX: K29.00 Acute gastritis without bleeding (principal); K57.90 Diverticulosis of intestine, part unspecified, without perforation or abscess without bleeding; I10 Essential (primary) hypertension; Z88.6 Allergy status to analgesic agent; Z88.8 Allergy status to other drugs, medicaments and biological substances; Z79.899 Other long term (current) drug therapy
CPT/HCPCS: 36415; 74176; 76376; 80053; 81003; 83690; 84484; 85025; 96361; 96374; 99284; J2001; J3490; J7030; Q0162; 99285